=== PATIENT | female | born 1945 | race Caucasian/White ===

== ENCOUNTER 2019-01-01 13:02 | Day surgery (SDC) | payer OTHER ==
[~2019-01-01] VITALS: Ht 149.9 cm; Wt 61.0 kg
[2019-01-01] MEDS ORDERED: Prinivil10 MG (13:32)
[2019-01-01] MEDS ORDERED: RALO60 (13:33)
[2019-01-01] MEDS ORDERED: Dyazide 37.5-21 EACH (13:33)
[2019-01-01] MEDS ORDERED: SUPERIOR DIGES1 EACH (13:34)
[2019-01-01] MEDS ORDERED: VITAMIN D31 ML (13:36)
[2019-01-01] MEDS ORDERED: Caltrate Plus1 EACH (13:36)
== END 2019-01-01 14:46 | disposition home or self-care (01) ==
LOC: ORSCSDS 13:02
PROVIDERS: Internal Medicine Gastroenterology
PROC: 0DBK8ZX Excision of Ascending Colon, Via Natural or Artificial Opening Endoscopic, Diagnostic (ICD-10-PCS; principal; 2019-01-01 14:15)
DX: Z12.11 Encounter for screening for malignant neoplasm of colon (principal); Z86.010 Personal history of colon polyps; D12.2 Benign neoplasm of ascending colon; K57.30 Diverticulosis of large intestine without perforation or abscess without bleeding; Z87.891 Personal history of nicotine dependence; Z79.899 Other long term (current) drug therapy
CPT/HCPCS: 88305; J2405; J2704; J7120

== ENCOUNTER → 2020-12-11 | Outpatient (CLI) | payer OTHER ==
[~2020-12-11] MED LIST: Caltrate Plus1 EACH; Dyazide 37.5-21 EACH; Prinivil10 MG; RALO60; SUPERIOR DIGES1 EACH; VITAMIN D31 ML
== END | disposition home or self-care (01) ==
LOC: LAB 15:12 → LAB SHORT 15:12
DX: D04.72 Carcinoma in situ of skin of left lower limb, including hip (principal)
CPT/HCPCS: 88305

== ENCOUNTER 2024-09-01 17:50 | Emergency (ER) | payer OTHER ==
[~2024-09-01] VITALS: Ht 142.2 cm; Wt 53.5 kg
[2024-09-01 23:52] VITALS: BP 139/86
== END 2024-09-01 23:51 | disposition home or self-care (01) ==
LOC: ER 17:50
DX: R55 Syncope and collapse (principal); R11.2 Nausea with vomiting, unspecified; R42 Dizziness and giddiness; R53.1 Weakness; I10 Essential (primary) hypertension; Z87.891 Personal history of nicotine dependence; Z88.1 Allergy status to other antibiotic agents; Z79.899 Other long term (current) drug therapy